=== PATIENT | male | born 1990 | race Caucasian/White ===

== ENCOUNTER → 2020-01-07 18:06 | Outpatient (CLI) | payer MEDICARE, SELFPAY | PROVIDERS: PCP Internal Medicine; Referring Provider Physician Assistant; Visit Provider Physician Assistant | DX: U07.1 COVID-19 (principal) | CPT/HCPCS: 87635; C9803; U0003 ==

== ENCOUNTER 2023-08-06 14:48 | Emergency (ER) | payer SELFPAY ==
[2023-08-06 14:49] VITALS: BP 182/125; PULSE 108; RESP 22; TEMP 37; O2SAT 98; BMI 28.3
--- NOTE | 2023-08-06 14:58 | EKG12_ITS ---
Test Reason : CP Blood Pressure : / mmHG Vent. Rate : 100 BPM Atrial Rate : 100 BPM P-R Int : 132 ms QRS Dur : 078 ms QT Int : 346 ms P-R-T Axes : 068 062 020 degrees QTc Int : 446 ms Normal sinus rhythm Normal ECG Confirmed by GRETEL SAENZ, RONY ([id number]), photograph editor LANDY PICKENS ([id number]) on 08/11/2023 6:10:37 AM Referred By: Confirmed By:BENITA MAJANO MD
--- NOTE | 2023-08-06 15:10 | ED.VIS.CHEST ---
HPI History of Present Illness Chief Complaint: Chest Pain Informant: patient Onset/Context/Timing Onset: Today Activity at onset: gradual and light activity Timing: Continuous Quality: Positive for - (Pinching) Location: Left Chest Worsened By: Movement of Arm and Breathing Relieved By: Nothing Associated Symptoms: Positive for Diaphoresis, Dyspnea, Lightheadedness and Palpitations; Negative for Nausea, Vomiting, Cough, Fever or Acid Reflux Narrative Narrative: Patient presents with chest pain that began today. Patient states it has been constant since this morning. Patient describes it as pinching. Patient states it is over the left side of his chest. Patient states it is worse with movement of his arm and with deep breathing. Patient admits to some shortness of breath and lightheadedness. Patient dates he did break out into a sweat today. Patient also admits to some palpitations. Patient denies any nausea or vomiting. Patient denies any cough or fever. Patient states he checked his blood pressure today and it was 178/143. CVD Risk Factors: Positive for Smoking; Negative for Hypertension, Diabetes, Hypercholesterolemia or Family History 1' </=55 PE Risk Factors: Negative for Recent Travel/Surgery, Recent Immobilization, Prior DVT or PE, Cancer or OCP + Smoking + >/=35 PFSH PFSH Medical History (Updated 08/06/23 @ 19:[address] Kar Hermosillo DO) Osteoporosis Degenerative disc disease Allergy/AdvReac Type Severity Reaction Status Date / Time Penicillins (PCN) Allergy Severe Anaphylaxis Verified 08/06/23 14:48 Surgical History no surgical history no surgical history Social History (Updated 08/06/23 @ 15:[address] Kar Hermosillo DO) Smoking Status: Current every day smoker tobacco type: cigarettes ROS ROS ED Constitutional Constitutional ED: Denies chills or fever(s) Eyes Eyes: Denies blurry vision or change in vision ENT ENT ED: Denies rhinorrhea or sore throat Cardiovascular Cardiovascular: Reports chest pain and palpitations Respiratory/Chest Respiratory/Chest: Reports dyspnea; Denies cough Gastrointestinal Gastrointestinal: Denies nausea or vomiting Genitourinary Genitourinary ED: Denies dysuria or hematuria Musculoskeletal Musculoskeletal: Denies back pain or neck pain Integumentary Denies abscess or rash Neurologic Neurologic: Denies headache(s) or weakness Allergic/Immunologic Allergic/Immunologic ED: Denies mouth swelling or urticaria EXAM Physical Exam Const Vital Signs: 08/06/23 14:49 08/06/23 14:58 08/06/23 15:48 Temperature 98.6 F Temperature Source Temporal Pulse Rate 108 H 72 Respiratory Rate 22 H 18 Blood Pressure 182/125 H 129/81 H Blood Pressure Mean 144 97 Pulse Ox 98 94 Oxygen Delivery Method Room Air Room Air Room Air 08/06/23 16:00 08/06/23 17:00 08/06/23 18:00 Temperature Temperature Source Pulse Rate 71 71 63 Respiratory Rate 16 18 Blood Pressure 129/81 H 131/73 H 131/98 H Blood Pressure Mean 97 92 109 Pulse Ox 95 98 Oxygen Delivery Method Room Air Room Air Positive well nourished and well developed General Appearance ED: well developed and NAD HEENT Reports moist mucous membranes Neck supple and no JVD Chest Wall inspection of chest normal Resp normal respiratory effort and clear to auscultation bilaterally Cardio regular rate and regular rhythm GI soft to palpation, non-tender and non-distended Extremity normal to inspection Neuro oriented x3, CN's II-XII intact bilaterally and no sensory deficits noted Sensorium / Orientation: awake and alert Motor Exam: strength 5/5 throughout Psych mental status grossly normal Heart Score History: Slightly/Non-Suspicious ECG: Normal Age: </= 45 years Risk Factors: 1 or 2 Risk Factors Troponin: </= Normal Limit Score: 1 MDM MDM MDM Narrative Medical decision making narrative: Differential diagnosis includes cardiac dysrhythmia, cardiac ischemia, pneumonia, electrolyte abnormality, pneumothorax, musculoskeletal pain, hypertensive urgency, and anxiety. EKG will be obtained to assess for cardiac dysrhythmia and cardiac ischemia. Chest x-ray will be obtained to assess for pneumonia and pneumothorax. CBC will be obtained to assess for leukocytosis and anemia. Basic metabolic profile will be obtained to assess for electrolyte abnormality and renal function. High-sensitivity troponin will be obtained to assess for cardiac ischemia. 2-hour repeat high-sensitivity troponin will be obtained to assess for ongoing cardiac ischemia. Patient has a Wells score of 1.5 and has no risk factors for pulmonary embolism. Therefore I do not feel that this is from a pulmonary embolism. Lab Data Attestation: I reviewed the patient's lab results. Lab results narrative: CBC was reviewed and was within normal limits. Basic metabolic profile was reviewed and was within normal limits. Initial high-sensitivity troponin was reviewed and was normal at 9. 2-hour repeat high-sensitivity troponin was reviewed and was normal at 8. Labs: Laboratory Results - last 24 hr 08/06/23 08/06/23 14:56 17:25 WBC 7.6 RBC 5.70 Hgb 15.3 Hct 47.7 MCV 83.7 MCH 26.8 L MCHC 32.1 RDW Std Deviation 37.4 RDW Coeff of Cedric 12.4 Plt Count 228 MPV 10.8 Immature Gran % (Auto) 0.400 Neut % (Auto) 60.9 Lymph % (Auto) 28.1 [place] % (Auto) 8.4 Eos % (Auto) 1.8 Baso % (Auto) 0.4 Absolute Neuts (auto) 4.6 Absolute Lymphs (auto) 2.14 Nucleated RBC % 0 Sodium 140 Potassium 4.0 Chloride 111 H Carbon Dioxide 24.0 Anion Gap 5 BUN 15 Creatinine 0.94 Estim Creat Clear Calc 138.63 Est GFR (MDRD) Af Amer 120 Est GFR (MDRD) Non-Af 99 BUN/Creatinine Ratio 16.0 Glucose 111 H Calcium 9.2 Troponin I High Sens 9 8 Radiography Diagnostic Testing: Clinical Impression(s) from Imaging Studies Chest X-Ray 08/06/23 15:30 IMPRESSION: No acute cardiopulmonary abnormality. No interval change. Electronically Signed: Damon Reed MD at 16:04 EDT , Portable 1 view chest x-ray was obtained. On my independent interpretation, lung rankin are clear. There is normal cardiac silhouette. Bony thorax is normal. There is no acute process noted. Radiologist also interpreted the x-ray and agrees. EKG Initial EKG: Attestation: I personally reviewed and interpreted this EKG as follows: Interpretation: Sinus Rhythm (100) and No Acute Injury Pattern Comments: EKG was obtained. On my independent interpretation, it showed a normal sinus rhythm with a rate of 100. DE interval, QRS interval, and QTc intervals were all normal. [place] was normal. There are no acute ST or T wave changes. Prior EKG tracings: not available for review Prior: No Prior Treatment and Re-Evaluation :: Smoking cessation was discussed. Patient was given aspirin here. Patient was advised of his findings. Patient has a HEART score of 1. Patient was advised that this is low risk for acute cardiac event. Patient was instructed to follow-up with his primary care physician in 5 to 7 days. Patient was instructed to continue to monitor his blood pressures. Patient was instructed to return if worse in any way. Patient understood and was agreeable with the plan. All questions were answered. Discharge Plan Triage Chief Complaint: Chest Pain ED Provider: Kar Hermosillo Dx/Rx/DC Orders Clinical Impression: Chest pain, Elevated BP without diagnosis of hypertension, Tobacco use Instructions: ED Chest Pain, Uncertain Cause, ED Hypertension, To Be Confirmed Primary Care Provider: Care Physician,No Primary Referrals: Dulce Prajapati DO [Med Staff - Marketing Admin] - 3-5 Days Print Language: Hungarian Disposition Disposition: Home, Self Care
[2023-08-06 15:11] LABS: Absolute Lymphocyte Count 2.14 X10^3/uL (0.83-4.51); Absolute Neutrophil Count 4.6 X10^3/uL (2.0-7.7); Basophil# 0.03 X10^3/uL; Basophil% 0.4 % (0-1); Eosinophil# 0.14 X10^3/uL; Eosinophils% 1.8 % (0-5); Hematocrit 47.7 % (40-54); Hemoglobin 15.3 g/dL (13.0-16.5); Lymphocyte # 2.14 X10^3/ul (0.83-4.51); Lymphocyte % 28.1 % (19-41); Mean Corp Hgb Conc 32.1 g/dL (32-36); Mean Corpuscular Hgb 26.8 pg (27.0-32.0); Mean Corpuscular Volume 83.7 fL (80-94); Mean Platelet Vol. 10.8 fl (6.2-12.0); Monocyte# 0.64 X10^3/uL; Monocyte% 8.4 % (0-10); NRBC Flagged by Analyzer 0 % (0-5); Neutrophil # 4.63 X10^3/uL (2.7-7.7); Neutrophil % 60.9 % (47-70); Platelet Count 228 K/mm3 (150-450); RBC Distribution Width CV 12.4 % (11.6-14.6); RBC Distribution Width SD 37.4 fl (35.1-43.9); White Blood Count 7.6 K/mm3 (4.4-11.0)
[2023-08-06 15:30] LABS: Anion Gap 5 (5-15); BUN 15 mg/dL (7-18); Calcium,Total 9.2 mg/dL (8.5-10.1); Chloride 111 mmol/L (98-107); Creatinine, Serum 0.94 mg/dL (0.70-1.30); EST Glomerular Filtration Rate 99 mL/min (>60); Est Glom Filt Rate - Afr Amer 120 mL/min (>60); Estimated Creatinine Clearance 138.63 ml/min; Glucose 111 mg/dL (74-106); Sodium Level 140 mmol/L (136-145); Troponin-I HS 9 pg/mL (3.0-78.0); Troponin-I HS (w/2H Reflex) 9 pg/mL (3.0-78.0)
--- NOTE | 2023-08-06 15:30 | RAD_ITS ---
EXAM: XR CHEST, 1 VIEW CLINICAL INDICATION: chest pain TECHNIQUE: Frontal view of the chest. COMPARISON: XR Chest dated 03/27/2009 FINDINGS: LUNGS AND PLEURAL SPACES: Normal. No consolidation or edema. No pneumothorax. No effusion. HEART: Normal heart size. MEDIASTINUM: No mediastinal or hilar mass. BONES/JOINTS: Old right clavicular fracture again seen. RAD/Chest 1 View (Portable) IMPRESSION: No acute cardiopulmonary abnormality. No interval change. Electronically Signed: Damon Reed MD at 16:04 EDT ,
[2023-08-06 15:48] VITALS: BP 129/81; PULSE 72; RESP 18; O2SAT 94
[2023-08-06 16:00] VITALS: BP 129/81; PULSE 71; RESP 16; O2SAT 95
[2023-08-06] MEDS: Aspirin 81 MG TAB.CHEW 324 MG PO (16:14)
[2023-08-06 17:00] VITALS: BP 131/73; PULSE 71; RESP 18; O2SAT 98
[2023-08-06 17:09] LABS: Reflex Troponin-HS? (from REC) Y
[2023-08-06 17:48] LABS: Troponin-I HS 8 pg/mL (3.0-78.0)
[2023-08-06 18:00] VITALS: BP 131/98; PULSE 63
[2023-08-06 19:00] VITALS: BP 130/72; PULSE 65; RESP 18; TEMP 36.8; O2SAT 96
== END 2023-08-06 19:11 | disposition home or self-care (01) ==
PROVIDERS: Emergency Provider Emergency Medicine; Visit Provider Emergency Medicine
DX: R07.9 Chest pain, unspecified (principal); R03.0 Elevated blood-pressure reading, without diagnosis of hypertension; F17.210 Nicotine dependence, cigarettes, uncomplicated
CPT/HCPCS: 71045; 80048; 84484; 85025; 93005; 99283; A4216

== ENCOUNTER 2025-01-17 11:01 | Emergency (ER) | payer MEDICAID, SELFPAY ==
[2025-01-17 11:03] VITALS: BP 184/134; PULSE 98; RESP 16; TEMP 36.9; O2SAT 99; BMI 29.2
--- NOTE | 2025-01-17 11:11 | ED.VIS.DENTA ---
HPI History of Present Illness Chief Complaint: Dental Informant: patient Onset/Context/Timing Onset: Yesterday Context: Gradual Onset Timing: Continuous Quality: Throbbing, tightness Location: Right upper molar Worsened by: Heating pad Relieved by: - (Nothing) Associated Symptoms Assocated Symptom - Dental: jaw swelling, cold sensitivity and hot sensitivity; Negative for fever or face swelling Narrative Narrative: Patient presents with right upper dental pain that began yesterday. Patient states it has gradually gotten worse. Patient describes it as throbbing and tightness. Patient states it is mainly over the right upper molar area. Patient admits to some swelling of his jaw. Patient also admits to some subjective chills. Patient states he tried to use a heating pad which actually made it worse. Patient states nothing seems to help with it. Patient admits to hot and cold sensitivity. Patient denies any fevers. [facility] Medical History (Updated 01/17/25 @ 11:[address] Kar Hermosillo DO) Heart murmur ADHD Depression Osteoporosis Degenerative disc disease Home Medications ?Medication ?Instructions ?Recorded ?Last Taken ?Type clindamycin HCl 300 mg capsule 300 mg PO Q6H #40 CAPSULES 01/17/25 Unknown Rx (Cleocin HCl) Allergy/AdvReac Type Severity Reaction Status Date / Time Penicillins (PCN) Allergy Severe Anaphylaxis Verified 01/17/25 11:03 Surgical History no surgical history no surgical history Social History Smoking Status: Former smoker ROS ROS ED Constitutional Constitutional ED: Denies chills or fever(s) Eyes Eyes: Denies blurry vision or change in vision ENT ENT ED: Reports rhinorrhea; Denies sore throat Cardiovascular Cardiovascular: Denies chest pain or palpitations Respiratory/Chest Respiratory/Chest: Denies cough or dyspnea Gastrointestinal Gastrointestinal: Denies nausea or vomiting Genitourinary Genitourinary ED: Denies dysuria or hematuria Musculoskeletal Musculoskeletal: Denies back pain or neck pain Integumentary Denies abscess or rash Neurologic Neurologic: Reports headache(s); Denies weakness Allergic/Immunologic Allergic/Immunologic ED: Denies mouth swelling or urticaria EXAM Physical Exam Const Vital Signs: 01/17/25 11:03 Temperature 98.5 F Temperature Source Oral Pulse Rate 98 Respiratory Rate 16 Blood Pressure 184/134 H Blood Pressure Mean 150 Pulse Ox 99 Oxygen Delivery Method Room Air Positive well nourished and well developed General Appearance ED: well developed and NAD HEENT HEENT Narrative: There are dental caries noted over the bilateral upper second molars. There is tenderness to percussion over the right upper second molar. There is some gingival edema around this tooth. There is no fluctuance. There is no discharge or drainage noted. Oropharynx is clear. Airway is patent. Neck is supple. Trachea is midline. There is no sublingual edema. There is no evidence of Selvin's angina. Teeth and Gingiva: caries and gingiva abnormal Positive for gingival edema Throat: posterior oropharynx normal Neck supple and no JVD General: Negative for anterior neck swelling, tenderness or submandibular swelling Neuro oriented x3, CN's II-XII intact bilaterally, moves all extremities, no focal motor deficits and no sensory deficits noted Sensorium / Orientation: alert Motor Exam: strength 5/5 throughout Psych mental status grossly normal MDM MDM MDM Narrative Medical decision making narrative: Patient was advised that this is most likely infected dental caries. Patient was given a dose of clindamycin here. Patient was given a prescription for clindamycin. Patient was instructed to follow-up with his dentist in 5 to 7 days. Patient was instructed to return if worse in any way. Patient understood and was agreeable with the plan. All questions were answered. Discharge Plan Triage Chief Complaint: Dental ED Provider: Kar Hermosillo Dx/Rx/DC Orders Clinical Impression: Infected dental caries, Elevated blood pressure reading without diagnosis of hypertension Instructions: ED Dental Pain, ED Dental Cavity Prescriptions: New clindamycin HCl [Cleocin HCl] 300 mg capsule 300 mg PO Q6H Qty: 40 0RF Primary Care Provider: Care Physician,No Primary Referrals: Care Physician,No Primary [Primary Care Provider, Medical] Dentist,Your [STAFF PHYSICIAN, Dentistry] - 5-7 Days Print Language: Luxembourgish Disposition Disposition: Home, Self Care
[2025-01-17 11:36] VITALS: BP 179/117; PULSE 97; RESP 17; TEMP 37.1; O2SAT 98
== END 2025-01-17 11:45 | disposition home or self-care (01) ==
LOC: ED 11:40
PROVIDERS: Emergency Provider Emergency Medicine; Visit Provider Emergency Medicine
DX: K02.9 Dental caries, unspecified (principal); Z87.891 Personal history of nicotine dependence; R03.0 Elevated blood-pressure reading, without diagnosis of hypertension
CPT/HCPCS: 99282